=== PATIENT | male | born 1965 | race Caucasian/White ===

== ENCOUNTER 2023-04-23 07:00 | Outpatient (CLI) | payer OTHER ==
--- NOTE | 2023-04-23 14:27 | XRAY Report ---
PROCEDURE: Chest 2 View X-Ray INDICATIONS: ACUTE COUGH, TACHYCARDIA TECHNIQUE: 2 views of the chest were acquired. COMPARISON: None. FINDINGS: Surgical changes and devices: None. Lungs and pleura: No pleural effusions or pneumothorax. Lungs are clear. Mediastinum: Mediastinal contours appear normal. Heart size is normal. Bones and chest wall: No suspicious bony lesions. Overlying soft tissues appear unremarkable. IMPRESSION: No acute cardiopulmonary process. Reviewed by: Jadiel Henson MD on 04/23/2023 2:26 PM PST Approved by: Jadiel Henson MD on 04/23/2023 2:26 PM [facility] [place] Station ID: [id number]
== END 2023-04-23 23:59 | disposition home or self-care (01) ==
LOC: DI.S 07:00
PROVIDERS: ATTEND Registered Nurse
DX: R00.0 Tachycardia, unspecified (principal); R50.9 Fever, unspecified; R05.1 Acute cough